=== PATIENT | male | born 1995 | race American Indian/Alaskan Native ===

== ENCOUNTER 2022-01-18 09:25 | Emergency (ER) | payer SELFPAY ==
[2022-01-18 10:53] VITALS: BP 118/82
[2022-01-18] MEDS ORDERED: KETOROLAC 30 MG/1 ML INJ IM ONE (11:55)
[2022-01-18] MEDS ORDERED: HYDROcodone/ACETAMINOPHEN 5-325 MG TAB PO ONE (11:55)
--- NOTE | 2022-01-18 12:06 | Emergency Department Report ---
- General Chief complaint: Skin Rash Stated complaint: FACE/HEAD/EYES BREAKING OUT AND SWOLLEN/PAIN Time Seen by Provider: 01/18/22 11:13 Source: patient Mode of arrival: Ambulatory Limitations: No Limitations - History of Present Illness Initial comments: 26-year-old male with a history of eczema presenting with facial rash. Patient reports symptoms initially started as a rash to his face is which is consistent with his eczema, however he noticed that the areas got bigger and spread to his forehead, his nails, cheeks, and his bilateral posterior ears. Became blisters which later busted and started peeling. Reports he had similar episode last year which resolved after couple of weeks. He is unsure of this new trigger but he thinks is as result of the masK. He denies fever, no headache dizziness or vision changes, no nausea vomiting abdominal pain,, complaint: rash, discoloration -: Gradual, week(s) Tetanus Up to Date: unsure Location: face Severity: mild Quality: other (itching) - Related Data Previous Rx's Medication Instructions Recorded Last Taken Type DOXYCYCLINE Hyclate [Vibramycin 100 mg PO Q12HR 7 Days #14 capsule 01/18/22 Unknown Rx CAP] Triamcinolone/Emollient Comb86 1 applic TP QID #1 tube 01/18/22 Unknown Rx [Dermasorb Ta 0.1% Complete Kit] methylPREDNISolone [Medrol 4MG 4 mg PO DAILY #1 pkg 01/18/22 Unknown Rx DOSEPAK (21 tabs)] Allergies Allergy/AdvReac Type Severity Reaction Status Date / Time No Known Allergies Allergy Unverified 01/18/22 10:53 Abscess Boil HPI - HPI Chief Complaint: Skin Rash Stated Complaint: FACE/HEAD/EYES BREAKING OUT AND SWOLLEN/PAIN Time Seen by Provider: 01/18/22 11:13 Home Medications: Previous Rx's Medication Instructions Recorded Last Taken Type DOXYCYCLINE Hyclate [Vibramycin 100 mg PO Q12HR 7 Days #14 capsule 01/18/22 Unknown Rx CAP] Triamcinolone/Emollient Comb86 1 applic TP QID #1 tube 01/18/22 Unknown Rx [Dermasorb Ta 0.1% Complete Kit] methylPREDNISolone [Medrol 4MG 4 mg PO DAILY #1 pkg 01/18/22 Unknown Rx DOSEPAK (21 tabs)] Allergies/Adverse Reactions: Allergies Allergy/AdvReac Type Severity Reaction Status Date / Time No Known Allergies Allergy Unverified 01/18/22 10:53 ED Review of Systems ROS: Stated complaint: FACE/HEAD/EYES BREAKING OUT AND SWOLLEN/PAIN Other details as noted in HPI Constitutional: denies: chills, fever Eyes: denies: eye pain ENT: denies: ear pain, throat pain Respiratory: denies: cough Cardiovascular: denies: chest pain, palpitations Endocrine: denies: intolerance to cold, intolerance to heat Gastrointestinal: denies: abdominal pain, nausea, vomiting Skin: rash, lesions, change in color, pruritus Neurological: denies: headache, weakness ED Past Medical Hx - Past Medical History Previous Medical History?: No - Surgical History Past Surgical History?: No - Medications Home Medications: Home Medications Medication Instructions Recorded Confirmed Last Taken Type DOXYCYCLINE Hyclate [Vibramycin 100 mg PO Q12HR 7 Days #14 capsule 01/18/22 Unknown Rx CAP] Triamcinolone/Emollient Comb86 1 applic TP QID #1 tube 01/18/22 Unknown Rx [Dermasorb Ta 0.1% Complete Kit] methylPREDNISolone [Medrol 4MG 4 mg PO DAILY #1 pkg 01/18/22 Unknown Rx DOSEPAK (21 tabs)] ED Physical Exam - General Limitations: No Limitations General appearance: alert, other - Head Head exam: Present: atraumatic - Expanded Head Exam Expanded Head exam: Absent: general tenderness 1 - Patient has diffuse areas of skin hyperpigmentation with excoriated areas, peeling skin, some areas of redness, around his nose, his forehead, the skin in the neck. - Eye Eye exam: Present: normal appearance, PERRL - ENT ENT exam: Present: normal exam, normal orophraynx. Absent: normal external ear exam (Draining rash lesions) - Neck Neck exam: Present: normal inspection - Respiratory Respiratory exam: Present: normal lung sounds bilaterally. Absent: respiratory distress, wheezes - Cardiovascular Cardiovascular Exam: Present: regular rate, normal heart sounds - GI/Abdominal GI/Abdominal exam: Present: soft, normal bowel sounds. Absent: distended, tenderness - Back Exam Back exam: Present: normal inspection, full ROM. Absent: tenderness - Neurological Exam Neurological exam: Present: alert, oriented X3, normal gait - Psychiatric Psychiatric exam: Present: normal affect, normal mood ED Course Vital Signs 01/18/22 10:50 Temperature 99.2 F Pulse Rate 95 H Respiratory 18 Rate Blood Pressure 118/82 [Left] O2 Sat by Pulse 99 Oximetry ED Medical Decision Making - Medical Decision Making 26-year-old male with a history of eczema presenting with facial rash. Patient reports symptoms initially started as a rash to his face is which is consistent with his eczema, however he noticed that the areas got bigger and spread to his forehead, his nails, cheeks, and his bilateral posterior ears. Became blisters which later busted and started peeling. Reports he had similar episode last year which resolved after couple of weeks. He is unsure of this new trigger but he thinks is as result of the masK. He denies fever, no headache dizziness or vision changes, no nausea vomiting abdominal pain,, Differential diagnosis includes eczema, psoriasis, allergic reaction, other skin infections. 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 Gone over ED findings with patient as well as plan for follow-up. Also discussed return precautions with patient, all questions and co ncerns addressed. Patient is stable to be discharged follow-up outpatient. Audio voice dictation device used, hence the chart might contain some dictation errors, mispronunciations, wrong spelling and wrong verbiage. Critical care attestation.: If time is entered above; I have spent that time in minutes in the direct care of this critically ill patient, excluding procedure time. ED Disposition Clinical Impression: Dermatitis, atopic, Skin infection Disposition: 01 HOME / SELF CARE / HOMELESS Is pt being admited?: No Does the pt Need Aspirin: No Condition: Stable Instructions: Cellulitis, Adult, Atopic Dermatitis Additional Instructions: Palmer Celis MD Prescriptions: Triamcinolone/Emollient Comb86 [Dermasorb Ta 0.1% Complete Kit] 1 applic TP QID #1 tube methylPREDNISolone [Medrol 4MG DOSEPAK (21 tabs)] 4 mg PO DAILY #1 pkg DOXYCYCLINE Hyclate [Vibramycin CAP] 100 mg PO Q12HR 7 Days #14 capsule Forms: Work/School Release Form(ED)
[2022-01-18] MEDS ORDERED: dexAMETHasone 20 MG/5 ML VIAL IM ONE (12:30)
[2022-01-18] MEDS ORDERED: HYDROcodone/ACETAMINOPHEN 5-325 MG TAB PO SCH (13:00)
[2022-01-18] MEDS ORDERED: KETOROLAC 30 MG/1 ML INJ ONE (13:08)
== END 2022-01-18 13:36 | disposition home or self-care (01) ==
LOC: ED 09:25
DX: L20.9 Atopic dermatitis, unspecified (principal); L08.9 Local infection of the skin and subcutaneous tissue, unspecified; Z79.899 Other long term (current) drug therapy
CPT/HCPCS: 96372; 99282; J1100; J1885